=== PATIENT | female | born 1940 | race Caucasian/White ===

== ENCOUNTER → 2016-08-21 | Outpatient (CLI) | payer MEDICARE, BC ==
--- NOTE | 2016-09-06 08:02 | MM ---
Reason for exam: screening (asymptomatic). Last mammogram was performed 2 years and 5 months ago. History: Patient is postmenopausal and history of other cancer. Family history of breast cancer in sister at age 65. Benign cyst aspiration of the right breast. Physical Findings: A clinical breast exam by your physician is recommended on an annual basis and results should be correlated with mammographic findings. MG 3D Screening Mammo W/Cad Bilateral CC and MLO view(s) were taken. Prior study comparison: March 23, 2014, mammogram, performed at [facility]. March 17, 2013, mammogram, performed at [facility]. The breast tissue is heterogeneously dense. This may lower the sensitivity of mammography. There are few typically benign round calcifications in both breasts. There is no discrete abnormality. ASSESSMENT: Benign, BI-RAD 2 RECOMMENDATION: Routine screening mammogram of both breasts in 1 year.
== END | disposition home or self-care (01) ==
LOC: RADMAMWWP 07:48
PROVIDERS: ATTEND Internal Medicine
DX: Z12.31 Encounter for screening mammogram for malignant neoplasm of breast (principal)
CPT/HCPCS: 77063; G0202

== ENCOUNTER 2017-12-07 23:19 | Emergency (ER) | payer MEDICARE, BC ==
[2017-12-07] MEDS ORDERED: MORPHINE SULFATE 4 MG/ML SYRINGE IM STA (23:38)
--- NOTE | 2017-12-07 23:42 | ED ---
Fall HPI - General Stated Complaint: FALL Time Seen by Provider: 12/07/17 23:25 Source: patient Limitations: altered mental status - History of Present Illness Complaint: fall -: minutes(s) When Fall Occurred: 1 hour [employer] Fall Witnessed: no Place Fall Occurred: home Loss of Consciousness: unsure Prolonged Down Time?: unclear Location: neck, pelvis Context: tripped/slipped Associated Symptoms: headache, neck pain - Related Data Home Medications Medication Instructions Recorded Confirmed Acyclovir [Zovirax] 400 mg PO BID@0600,1900 01/17/15 02/14/15 Cyclobenzaprine [Flexeril] 10 mg PO TID@0600,1200,1800 01/17/15 02/14/15 Dexamethasone [Hexadrol] 4 mg PO DAILY 01/17/15 02/14/15 Docusate [Colace] 100 mg PO BID 01/17/15 02/14/15 Loperamide [Imodium] 2 mg PO DAILY PRN 01/17/15 02/14/15 Omeprazole [PriLOSEC] 20 mg PO AC-SUPPER 01/17/15 02/14/15 Ondansetron HCl [Zofran] 4 mg PO Q8HR PRN 01/17/15 02/14/15 Tamsulosin HCl [Flomax] 0.4 mg PO DAILY 01/17/15 02/14/15 ALPRAZolam [Xanax] 0.25 mg PO TID@0600,1300,1900 02/07/15 02/14/15 HYDROcodone/APAP 7.5-325MG [Morgan 1 tab PO Q6HR PRN 02/07/15 02/14/15 7.5-325] L.acidoph,Paracasei, B.lactis 1 cap PO DAILY 02/14/15 02/14/15 [Probiotic] Lisinopril [Zestril] 10 mg PO DAILY 02/14/15 02/14/15 oxyCODONE HCL [OxyCONTIN] 60 mg PO Q12HR@0600,1800 02/14/15 02/14/15 Previous Rx's Medication Instructions Recorded Cefuroxime Axetil [Ceftin] 500 mg PO BID #10 tablet 02/19/15 MORPHINE ORAL AGAPITO CONC 20mg/mL 5 mg PO Q4H PRN #30 ml 02/19/15 [Roxanol Oral Soln Conc 20Mg/ml] Allergies Allergy/AdvReac Type Severity Reaction Status Date / Time No Known Allergies Allergy Verified 12/08/17 00:00 Review of Systems ROS Statement: Those systems with pertinent positive or pertinent negative responses have been documented in the HPI. ROS Other: All systems not noted in ROS Statement are negative. Limitations: ROS unobtainable due to patients medical condition Past Medical History Past Medical History: Deep Vein Thrombosis (DVT), GERD/Reflux, Hypertension, Osteoarthritis (OA) Additional Past Medical History / Comment(s): multiple myeloma, sinusitis, scatica,dvt rt leg 2001, anxiety History of Any Multi-Drug Resistant Organisms: None Reported Past Surgical History: Cholecystectomy, Hernia Repair, Hysterectomy, Joint Replacement, Orthopedic Surgery Additional Past Surgical History / Comment(s): bilateral knee replacement, back surgery/injections, colonoscopy/polypectomy, d/t bowel obstruction had bowel resection w/ colostomy then had reversal of colostomy 1999, total hysterectomt d /t endometreosis, abd exploratory sx for multiple lysis of adhesions, migue knee replacements, cataracts-lens implants. Past Anesthesia/Blood Transfusion Reactions: No Reported Reaction Past Psychological History: Anxiety Additional Psychological History / Comment(s): pt has been home about a month from [facility], had visiting nurse x2 a week and nurse aid 2x a week. pt's stated pt was getting up with a walker but in past few days increasingly weaker and not able to get up. Smoking Status: Never smoker Past Alcohol Use History: None Reported Past Drug Use History: None Reported - Past Family History Sister(s) Family Medical History: Cancer Additional Family Medical History / Comment(s): breast Mother Additional Family Medical History / Comment(s): had heart problems - in her 80's Father History Unknown: Yes General Exam General appearance: alert, in no apparent distress, obese Head exam: Present: atraumatic, normocephalic Neck exam: Present: tenderness. Absent: full ROM (In cervical collar) Respiratory exam: Present: normal lung sounds bilaterally. Absent: respiratory distress, wheezes, rales, rhonchi, stridor Cardiovascular Exam: Present: regular rate, normal rhythm, normal heart sounds. Absent: systolic murmur, diastolic murmur, rubs, gallop GI/Abdominal exam: Present: soft. Absent: distended, tenderness, guarding, rebound, mass Neurological exam: Present: alert, CN II-XII intact. Absent: oriented X3 ( Patient is oriented to person and place but could not state the date), motor sensory deficit Skin exam: Present: warm, dry, intact, normal color. Absent: rash Course Vital Signs 12/07/17 23:53 Temperature 98.3 F Pulse Rate 63 Respiratory 18 Rate Blood Pressure 229/102 O2 Sat by Pulse 89 L Oximetry Disposition Clinical Impression: Fall Disposition: HOME SELF-CARE Condition: Poor Instructions: Fall Prevention for Older Adults (ED) Is patient prescribed a controlled substance at d/c from ED?: No Referrals: Isidro Carpenter MD [Primary Care Provider] - 1-2 days
[2017-12-08] VITALS: TEMP 98.3
--- NOTE | 2017-12-08 01:03 | CT ---
EXAMINATION TYPE: CT brain terrell page DATE OF EXAM: 12/08/2017 COMPARISON: CT brain 02/16/2015 HISTORY: Fall CT DLP: 1477.20 mGycm Automated exposure control for dose reduction was used. TECHNIQUE: CT scan of the head and cervical spine are performed without contrast. FINDINGS: There is mild cerebral cortical atrophy. There is some hypodensity in the periventricular white matter. There is no mass effect nor midline shift. There is no sign of intracranial hemorrhage . There is cranial hyperostosis. The cervical vertebra have fairly normal spacing and alignment. There is osteopenia. Facet joints sofiya ear intact. There is no compression fracture. The skull base appears intact. IMPRESSION: Cerebral atrophy and chronic small vessel ischemia. No significant change. Minimal spondylotic changes in the cervical spine. Osteopenia. No fracture.
--- NOTE | 2017-12-08 01:14 | CT ---
EXAMINATION TYPE: CT pelvis wo con DATE OF EXAM: 12/08/2017 COMPARISON: 02/15/2015 HISTORY: fall, pelvic pain, bilateral hip pain CT DLP: 674.10 mGycm Automated exposure control for dose reduction was used. FINDINGS: There is osteopenia. There is facet arthropathy in the lower lumbar spine with spur formation. There is some compression deformity of L4 vertebra. This is unchanged. Sacroiliac joints are intact. Sacrum and coccyx appear intact. The pelvic ring is intact. There is mi ld acetabular spurring. The proximal femurs are intact. I see no pelvic fracture. Bladder distends sm oothly. There is no free fluid in the pelvis. There is previous surgery on the sigmoid colon. There i s umbilical hernia that contains fat. IMPRESSION: OSTEOPENIA. OLD MILD L4 COMPRESSION FRACTURE. NO ACUTE FRACTURE SEEN.
[2017-12-08] MEDS ORDERED: MORPHINE SULFATE 4 MG/ML SYRINGE IM STA (01:26)
[2017-12-08 01:33] VITALS: BP 202/90; PULSE 72; RESP 16
== END 2017-12-08 02:32 | disposition home or self-care (01) ==
LOC: EC 23:19
DX: M54.2 Cervicalgia (principal); R51 Headache; E66.9 Obesity, unspecified; I10 Essential (primary) hypertension; K21.9 Gastro-esophageal reflux disease without esophagitis; M19.90 Unspecified osteoarthritis, unspecified site; F41.9 Anxiety disorder, unspecified; Z79.52 Long term (current) use of systemic steroids; Z79.891 Long term (current) use of opiate analgesic; Z79.899 Other long term (current) drug therapy; Z68.30 Body mass index [BMI] 30.0-30.9, adult; W10.9XXA Fall (on) (from) unspecified stairs and steps, initial encounter; Y93.01 Activity, walking, marching and hiking; Y92.015 Private garage of single-family (private) house as the place of occurrence of the external cause
CPT/HCPCS: 72192; 72125; 70450; 99284; 96372 ×2; J2270 ×2